=== PATIENT | male | born 1960 | race Caucasian/White ===

== ENCOUNTER 2016-08-04 18:01 | Emergency (ER) | payer BC ==
[2016-08-04] MEDS ORDERED: Amoxicillin/Clavulanate TAB* 875 MG PO ONE (18:30)
[2016-08-04] MEDS ORDERED: predniSONE TAB* 20 MG PO ONE (18:31)
[2016-08-04 18:36] VITALS: BP 137/93
--- NOTE | 2016-08-04 18:44 | UC ---
Respiratory Complaint HPI - HPI Summary HPI Summary: Patient states that he is having trouble breathing because his nose is clogged, has been using afrin for a month denies cough, has facial sinus pressure. - History of Current Complaint Stated Complaint: NASAL CONGESTION Time Seen by Provider: 08/04/16 18:25 Hx Obtained From: Patient Onset/Duration: Sudden Onset, Lasting Days Timing: Constant Severity Initially: Mild Severity Currently: Severe Pain Intensity: 7 Pain Scale Used: 0-10 Numeric Aggravating Factors: Exertion Alleviating Factors: Nothing Associated Signs And Symptoms: Positive: Nasal Congestion, Sinus Discomfort - Risk Factors Pulmonary Embolism Risk Factors: Negative - Allergies/Home Medications Allergies/Adverse Reactions: Allergies Allergy/AdvReac Type Severity Reaction Status Date / Time No Known Allergies Allergy Verified 11/15/12 18:05 PMH/Surg Hx/FS Hx/Imm Hx Previously Healthy: Yes - Family History Known Family History: Positive: Hypertension - Social History Substance Use Type: Other Review of Systems Constitutional: Negative Skin: Negative Eyes: Negative ENT: Nasal Discharge, Other - faca pain and swelling Respiratory: Negative Cardiovascular: Negative Gastrointestinal: Negative Genitourinary: Negative Motor: Negative Neurovascular: Negative Musculoskeletal: Negative Neurological: Headache Psychological: Negative All Other Systems Reviewed And Are Negative: Yes Physical Exam Triage Information Reviewed: Yes Appearance: Well-Appearing, Well-Nourished, Ill-Appearing Vital Signs Reviewed: Yes Eye Exam: Normal Eyes: Positive: Conjunctiva Clear ENT Exam: Normal ENT: Positive: Normal ENT inspection, Pharynx normal, Nasal congestion, TMs normal, TM dull - on right side, Tonsillar exudate Dental Exam: Normal Neck exam: Normal Neck: Positive: Supple, Nontender, No Lymphadenopathy Respiratory Exam: Normal Respiratory: Positive: Chest non-tender, Lungs clear, Normal breath sounds Cardiovascular Exam: Normal Cardiovascular: Positive: RRR, No Murmur, Pulses Normal Abdominal Exam: Normal Abdomen Description: Positive: Nontender, No Organomegaly, Soft Bowel Sounds: Positive: Present Musculoskeletal Exam: Normal Musculoskeletal: Positive: Strength Intact, ROM Intact, No Edema Neurological Exam: Normal Neurological: Positive: Alert, Muscle Tone Normal Psychological Exam: Normal Skin Exam: Normal Respiratory Course/Dx - Course Course Of Treatment: hx obtained, exam performed medications prescribed and dispensed - Differential Dx/Diagnosis Differential Diagnosis/HQI/PQRI: Aspiration, Asthma, Bronchitis, Influenza, Laryngitis, SARS, Sinusitis Provider Diagnoses: sinusitis Discharge - Discharge Plan Condition: Stable Disposition: HOME Patient Education Materials: Sinusitis (ED) Additional Instructions: take the medication as prescribed. stop the afrin follow up with any worsening symptoms.
== END 2016-08-04 18:57 | disposition home or self-care (01) ==
LOC: UCCORT 18:01
DX: J32.9 Chronic sinusitis, unspecified (principal)
CPT/HCPCS: 99202; A9270-GY; G0463; J7512

== ENCOUNTER 2017-12-12 09:23 | Emergency (ER) | payer BC ==
[2017-12-12 10:08] VITALS: BP 156/94
--- NOTE | 2017-12-12 10:36 | UC ---
Throat Pain/Nasal Travis HPI - HPI Summary HPI Summary: 57 y/o male presents to the urgent care c/o sinus congestion w/ yellowish nasal discharge for 1.5 weeks getting worse over the last 3 days. Pt states sinus pain and BLANCO is 5/10. He has been taking OTC sinus medications and Claritin to alleviate symptoms w/o any relief. Pt states Hx or recurrent sinusitis and seasonal allergies. pt denies fever, sOB, cough, chest pain, abdominal pain, N/V /D - History of Current Complaint Chief Complaint: UCGeneralIllness Stated Complaint: SINUS COMP Time Seen by Provider: 12/12/17 10:31 Hx Obtained From: Patient Onset/Duration: Gradual Onset, Still Present - 1.5 weks, Worse Since - 2 days Severity: Mild Pain Intensity: 5 Pain Scale Used: 0-10 Numeric Cough: None Associated Signs & Symptoms: Positive: Sinus Discomfort, Nasal Discharge Related History: Seasonal Allergies - Epiglottits Risk Factors Epiglottis Risk Factors: Negative - Allergies/Home Medications Allergies/Adverse Reactions: Allergies Allergy/AdvReac Type Severity Reaction Status Date / Time environmental Allergy Congestion Uncoded 12/12/17 10:08 Home Medications: Home Medications Cholesterol Med 1 tab PO DAILY 12/12/17 [History Confirmed 12/12/17] PMH/Surg Hx/FS Hx/Imm Hx Previously Healthy: Yes Endocrine History: Dyslipidemia Other Respiratory History: seasonal allergies - Surgical History Surgical History: Yes Surgery Procedure, Year, and Place: hernia Spring 2015 - Family History Known Family History: Positive: Hypertension - Social History Occupation: Employed Full-time Lives: With Family Alcohol Use: None Substance Use Type: None Smoking Status (MU): Former Smoker Review of Systems Constitutional: Negative Skin: Negative Eyes: Negative ENT: Ear Ache - B/L ear pressure, Nasal Discharge, Sinus Congestion, Sinus Pain/ Tenderness Respiratory: Negative Cardiovascular: Negative Gastrointestinal: Negative Genitourinary: Negative Motor: Negative, Decreased ROM Musculoskeletal: Negative Neurological: Headache Psychological: Negative Is Patient Immunocompromised?: No All Other Systems Reviewed And Are Negative: Yes Physical Exam - Summary Physical Exam Summary: Vitals: reviewed General: Well developed, well-nourished male patient with NAD. Head and face: Normocephalic and atraumatic, Positive tenderness over the frontal and maxillary sinuses.. Eyes: PERRLA, EOMI x 2. Normal conjunctiva. No eye discharge. ENT: Ears and TM with normal limits. Nose: edematous and erythematous nasal mucosa with with yellowish discharge and erythematous mucosa. Pharynx with erythema, no exudate. +PND yellowish Neck: Supple, no JVD, no carotid bruits and no lymphadenopathy. Lungs: clear, no rales, no rhonchi, no wheezes. CVS: RRR, S1 and S2 present no murmurs or gallops appreciated. Abdomen: soft nontender with positive bowel sounds. Extremities: no edema noted. Neuro: WNL. Skin: warm and dry Triage Information Reviewed: Yes Vital Signs: Initial Vital Signs Temp 97.9 F 12/12/17 10:04 Pulse 83 12/12/17 10:04 Resp 14 12/12/17 10:04 BP 156/94 12/12/17 10:04 Pulse Ox 97 12/12/17 10:04 Throat Pain/Nasal Course/Dx - Course Course Of Treatment: 57 y/o male presents to the urgent care c/o sinus congestion w/ yellowish nasal discharge for 1.5 weeks getting worse over the last 3 days. Pt states sinus pain and BLANCO is 5/10. He has been taking OTC sinus medications and Claritin to alleviate symptoms w/o any relief. Pt states Hx or recurrent sinusitis and seasonal allergies. pt denies fever, sOB, cough, chest pain, abdominal pain, N/V/D. Hx obtained. Pt with 1.5 weeks of symptoms getting worse. Pt Rx Augmentin PO and flonase nasal spray. Prednisone PO taper dose PO for cough. Discharge instructions explained to Pt. Advised to Return to the clinic or PCP if symptoms do not improve.Pt's BP is elevated today advised to decrease salt in diet, monitor BP and f/u with PCP for further management.Pt understood and agreed with plan of care. - Differential Dx/Diagnosis Differential Diagnosis/HQI/PQRI: Influenza, Laryngitis, Pharyngitis, Sinusitis, URI Provider Diagnoses: 1- Acute bacterial sinusitis. 2-Elevated BP w/o Hx of HTN Discharge - Sign-Out/Discharge Documenting (check all that apply): Discharge/Admit/Transfer - D/C home - Discharge Plan Condition: Stable Disposition: HOME Prescriptions: Amoxicillin/Clavulanate TAB* [Augmentin TAB 875*] 875 mg PO BID #20 tab Fluticasone NASAL SPRAY 50MCG* [Flonase NASAL SPRAY 50MCG*] 2 spray BOTH NARES DAILY #1 btl predniSONE TAB* [Deltasone 20 MG TAB*] 20 mg PO DAILY #11 tab Patient Education Materials: Sinusitis (ED) Referrals: Zoila Joshua MD [Primary Care Provider] - 3 Days Additional Instructions: 1- Please increase fluid intake and rest. take full course of antibiotic to avoid resistance. Take Prednisone PO taper dose as directed to alleviate symptoms 2-Use Flonase as directed to help drain fluid. Also buy saline drops to clear sinuses 3-Continue taking Claritin PO to alleviates sinus congestion 4-Return to the clinic or PCP if symptoms do not improve for further management and treatment 5-Your BP is elevated today. please decrease salt in your diet, monitor BP and if it continues to be elevated please f/u with your PCP for further management - Billing Disposition and Condition Condition: STABLE Disposition: Home
== END 2017-12-12 10:59 | disposition home or self-care (01) ==
LOC: UCCORT 09:23
DX: E78.5 Hyperlipidemia, unspecified (principal); J01.80 Other acute sinusitis; B96.89 Other specified bacterial agents as the cause of diseases classified elsewhere; R03.0 Elevated blood-pressure reading, without diagnosis of hypertension; Z87.891 Personal history of nicotine dependence
CPT/HCPCS: 99212; G0463

== ENCOUNTER 2018-04-27 18:19 | Emergency (ER) | payer BC ==
[2018-04-27 18:52] VITALS: BP 127/75
[2018-04-27] MEDS ORDERED: predniSONE TAB* 20 MG PO ONE (19:11)
--- NOTE | 2018-04-27 19:12 | UC ---
Shortness of Breath HPI - HPI Summary HPI Summary: SINUS CONGESTION PRESSURE AND PAIN X3-4 DAYS PT A RETICENT HISTORIAN - History of Current Complaint Chief Complaint: UCGeneralIllness Stated Complaint: SINUS Time Seen by Provider: 04/27/18 19:00 - Allergy/Home Medications Allergies/Adverse Reactions: Allergies Allergy/AdvReac Type Severity Reaction Status Date / Time environmental Allergy Congestion Uncoded 04/27/18 18:50 Home Medications: Home Medications Bp Med 04/27/18 [History] Loratadine/Pseudoephedrine [Claritin-D 12 Hour Tablet] 1 each PO BID 04/27/18 [ History Confirmed 04/27/18] PMH/Surg Hx/FS Hx/Imm Hx Endocrine History: Dyslipidemia Cardiovascular History: Hypertension - Surgical History Surgical History: Yes Surgery Procedure, Year, and Place: hernia Spring 2015 - Family History Known Family History: Positive: Hypertension - Social History Alcohol Use: Rare Substance Use Type: None Smoking Status (MU): Former Smoker Review of Systems Constitutional: Negative ENT: Nasal Discharge, Sinus Congestion, Sinus Pain/Tenderness Physical Exam Triage Information Reviewed: Yes Appearance: Well-Appearing, No Pain Distress, Well-Nourished Vital Signs: Initial Vital Signs Temp 97.4 F 04/27/18 18:47 Pulse 97 04/27/18 18:47 Resp 18 04/27/18 18:47 BP 127/75 04/27/18 18:47 Pulse Ox 98 04/27/18 18:47 Vital Signs Reviewed: Yes Eyes: Positive: Conjunctiva Clear ENT: Positive: Hearing grossly normal, Pharynx normal, Nasal congestion, TMs normal Neck: Positive: Supple, Nontender, No Lymphadenopathy Respiratory Exam: Normal Cardiovascular Exam: Normal Abdomen Description: Positive: Soft Musculoskeletal: Positive: No Edema Neurological: Positive: Alert Psychological: Positive: Age Appropriate Behavior Skin: Negative: rashes Shortness of Breath Dx - Differential Dx/Diagnosis Provider Diagnoses: ACUTE SINUSITIS - LIKELY VIRAL Discharge - Discharge Plan Referrals: Zoila Joshua MD [Primary Care Provider] -
--- NOTE | 2018-04-27 19:21 | UC ---
Respiratory Complaint HPI - HPI Summary HPI Summary: 3-4 DAYS OF SINUS PRESSURE AND NASAL CONGESTION. NO FEVER, NAUSEA/VOMITING. 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 SYMPTOMS OFTEN HELPED BY A COURSE OF PREDNISONE. - History of Current Complaint Chief Complaint: UCGeneralIllness Stated Complaint: SINUS Time Seen by Provider: 04/27/18 19:00 Hx Obtained From: Patient Onset/Duration: Gradual Onset, Lasting Days, Still Present Timing: Constant Severity Initially: Moderate Severity Currently: Moderate Pain Intensity: 5 Pain Scale Used: 0-10 Numeric Character: Cough: Nonproductive Aggravating Factors: Nothing Alleviating Factors: Nothing Associated Signs And Symptoms: Positive: URI, Nasal Congestion, Sinus Discomfort. Negative: Dyspnea, Fever - Allergies/Home Medications Allergies/Adverse Reactions: Allergies Allergy/AdvReac Type Severity Reaction Status Date / Time environmental Allergy Congestion Uncoded 04/27/18 18:50 Home Medications: Home Medications Bp Med 04/27/18 [History] Loratadine/Pseudoephedrine [Claritin-D 12 Hour Tablet] 1 each PO BID 04/27/18 [ History Confirmed 04/27/18] PMH/Surg Hx/FS Hx/Imm Hx Endocrine History: Dyslipidemia Cardiovascular History: Hypertension - Surgical History Surgical History: Yes Surgery Procedure, Year, and Place: hernia Spring 2015 - Family History Known Family History: Positive: Hypertension - Social History Alcohol Use: Rare Substance Use Type: None Smoking Status (MU): Former Smoker Review of Systems Constitutional: Negative ENT: Nasal Discharge, Sinus Congestion, Sinus Pain/Tenderness Respiratory: Cough Cardiovascular: Negative Gastrointestinal: Negative All Other Systems Reviewed And Are Negative: Yes Physical Exam Triage Information Reviewed: Yes Appearance: Well-Appearing, No Pain Distress, Well-Nourished Vital Signs: Initial Vital Signs Temp 97.4 F 04/27/18 18:47 Pulse 97 04/27/18 18:47 Resp 18 04/27/18 18:47 BP 127/75 04/27/18 18:47 Pulse Ox 98 04/27/18 18:47 Vital Signs Reviewed: Yes Eyes: Positive: Conjunctiva Clear ENT: Positive: Hearing grossly normal, Pharynx normal, Nasal congestion, TMs normal Neck: Positive: Supple, Nontender, No Lymphadenopathy Respiratory Exam: Normal Cardiovascular Exam: Normal Abdomen Description: Positive: Soft Musculoskeletal: Positive: No Edema Neurological: Positive: Alert Psychological: Positive: Age Appropriate Behavior Skin: Negative: rashes UC Diagnostic Evaluation - Laboratory O2 Sat by Pulse Oximetry: 98 Respiratory Course/Dx - Differential Dx/Diagnosis Provider Diagnoses: ACUTE SINUSITIS - LIKELY VIRAL Discharge - Sign-Out/Discharge Documenting (check all that apply): Patient Departure All imaging exams completed and their final reports reviewed: No Studies - Discharge Plan Condition: Stable Disposition: HOME Prescriptions: predniSONE TAB* [Deltasone TAB*] 50 mg PO DAILY #4 tab Patient Education Materials: Sinusitis (ED) Referrals: Zoila Joshua MD [Primary Care Provider] - If Needed Additional Instructions: YOUR SYMPTOMS ARE LIKELY VIRALLY MEDIATED AND SHOULD RESOLVE ON THEIR OWN WITH TIME. NO INDICATION FOR ANTIBIOTICS AT PRESENT. REST, HYDRATE, OTC MEDS NEEDED. WILL TREAT WITH PREDNISONE TO HELP WITH AIRWAY INFLAMMATION AND ALLERGY SYMPTOMS. CONTINUE YOUR ANTIHISTAMINE. SEEK FOLLOW-UP IF YOU ARE NOT IMPROVING OVER THE NEXT 1-2 WEEKS. OKAY TO USE OTC AFRIN FOR NASAL CONGESTION. 2 SPRAYS IN EACH NOSTRIL TWICE DAILY NEEDED. DO NOT USE FOR MORE THAN 3-4 DAYS IN A ROW TO PREVENT DEVELOPING REBOUND CONGESTION. - Billing Disposition and Condition Condition: STABLE Disposition: Home
== END 2018-04-27 19:22 | disposition home or self-care (01) ==
LOC: UCCORT 18:19
DX: J01.90 Acute sinusitis, unspecified (principal); I10 Essential (primary) hypertension; Z87.891 Personal history of nicotine dependence
CPT/HCPCS: 99212; G0463; J7512